=== PATIENT | female | born 1990 | race Caucasian/White ===

== ENCOUNTER 2020-04-19 09:19 | Emergency (ER) | payer OTHER ==
[2020-04-19 17:53] LABS: SARS-CoV-2 MS2 Positive; SARS-CoV-2 N Gene Negative; SARS-CoV-2 S Gene Negative; SARS-CoV-2 by NAA Not Detected (NotDetected); SARS-CoV-2 orf1ab Negative
== END 2020-04-19 09:54 | disposition home or self-care (01) ==
LOC: ERS 09:19
DX: Z20.828 Contact with and (suspected) exposure to other viral communicable diseases (principal); Z3A.20 20 weeks gestation of pregnancy
CPT/HCPCS: 87635; 99283; U0003